=== PATIENT | female | born 1950 | race Caucasian/White ===

== ENCOUNTER 2016-05-30 13:38 | Outpatient (CLI) | payer BC | END 2016-05-30 13:39 | disposition home or self-care (01) | DX: Z12.31 Encounter for screening mammogram for malignant neoplasm of breast (principal) ==

== ENCOUNTER 2016-07-07 22:53 | Outpatient (CLI) | payer BC | END 2016-07-07 22:54 | disposition home or self-care (01) | DX: G47.61 Periodic limb movement disorder (principal) ==

== ENCOUNTER 2016-08-27 07:52 | Outpatient (CLI) | payer BC | END 2016-08-27 07:53 | disposition home or self-care (01) | DX: E78.5 Hyperlipidemia, unspecified (principal) ==

== ENCOUNTER 2016-09-15 09:28 | Outpatient (CLI) | payer BC | END 2016-09-15 09:29 | disposition home or self-care (01) | DX: G47.61 Periodic limb movement disorder (principal) ==

== ENCOUNTER 2016-11-09 10:51 | Day surgery (SDC) | payer BC ==
[2016-11-09] MEDS ORDERED: LACTATED RINGERS 1,000 ML IV ONE (11:16)
[2016-11-09 12:44] VITALS: BP 128/76
--- NOTE | 2016-11-09 12:45 | PROCEDURE REPORT ---
DATE OF PROCEDURE: 11/09/2016 00:00:00 PROCEDURE PERFORMED: Colonoscopy with biopsy. ENDOSCOPIST: Verna Reyes MD PRIMARY CARE: Katharine Mas PA-C INDICATION: History of diarrhea and rectal bleeding with abnormal CT showing thickening near the sple rosario flexure, now symptoms resolved. Need to rule out ischemic colitis, rule out neoplasia. PREMEDICATIONS: None at patient request. After informed consent was obtained, the patient was placed in left lateral decubitus position. The v ideo colonoscope was introduced in the rectum and slowly advanced to the cecum. Preparation was quite good. On slow withdrawal, mucosa was carefully examined. The scope was removed. The patient tolerate d the procedure well. BLOOD LOSS: None. COMPLICATIONS: None. FINDINGS 1. A 5 mm polyp in the proximal transverse colon, jumbo biopsied and removed completely. 2. Otherwise negative colonoscopy to cecum with complete resolution of any process going on in the sp lenic flexure. The patient probably had ischemic colitis, which now resolved. No further workup is necessary, though if she has recurrent symptoms she should call. We will be in touch about the colon polyp, which most likely is adenomatous, and if it is she will ne ed followup colonoscopy in 5 years rather than 10. JOB #: [id number] EXT JOB #:[id number]
== END 2016-11-09 10:52 | disposition home or self-care (01) ==
LOC: SDS 10:51
PROVIDERS: ATTEND Internal Medicine Gastroenterology
PROC: 0DBL8ZX Excision of Transverse Colon, Via Natural or Artificial Opening Endoscopic, Diagnostic (ICD-10-PCS; principal; 2016-11-09 12:00)
DX: R19.7 Diarrhea, unspecified (principal); K62.5 Hemorrhage of anus and rectum; D12.3 Benign neoplasm of transverse colon; E11.9 Type 2 diabetes mellitus without complications; E03.9 Hypothyroidism, unspecified; Z79.84 Long term (current) use of oral hypoglycemic drugs; Z79.82 Long term (current) use of aspirin; Z82.49 Family history of ischemic heart disease and other diseases of the circulatory system; Z83.3 Family history of diabetes mellitus; Z87.891 Personal history of nicotine dependence
CPT/HCPCS: 45380; J7120; 88305

== ENCOUNTER 2016-11-19 08:33 | Outpatient (CLI) | payer MEDICARE, BC ==
--- NOTE | 2016-11-20 16:15 | Ultrasound Report ---
EXAM: ARTERIAL VISCERAL COMPLETE DOPPLER ULTRASOUND EXAM DATE: 11/19/2016 09:57 AM. CLINICAL HISTORY: Abnormal CT, diarrhea, rectal bleeding. COMPARISON: CT abdomen and pelvis 04/15/2016. TECHNIQUE: Real-time sonographic vascular imaging was performed by the health coordinator through the arteri al system with a linear transducer utilizing color-flow, Doppler flow, and spectral analysis. Multipl e patient care representative static images were saved for review. FINDINGS: Aorta: 108 cm/sec. Celiac [place]: Origin: 187 cm/sec. Proximal: 215 cm/sec. Hepatic Artery: 165 cm/sec. Splenic Artery: 161 cm/sec. Superior Mesenteric Artery: Origin: 215 cm/sec. Proximal: 234 cm/sec Mid: 159 cm/sec. Inferior Mesenteric Artery: Not seen. Limited penetration due to large body habitus which limits visualization. IMPRESSION: Elevated peak systolic velocities seen at the proximal celiac artery, hepatic artery, and splenic artery. These velocities can be seen with 70% or greater stenosis. Limited exam as above. [facility] Referring Provider Line: [phone] SITE ID: [id number]
== END 2016-11-19 08:34 | disposition home or self-care (01) ==
LOC: DI 08:33
PROVIDERS: ATTEND Physician Assistant
DX: I77.4 Celiac artery compression syndrome (principal); I70.8 Atherosclerosis of other arteries
CPT/HCPCS: 93975

== ENCOUNTER 2017-04-17 08:17 | Outpatient (CLI) | payer MEDICARE, BC ==
[2017-04-17 08:55] LABS: BASOPHILS % (AUTO) 0.3 %; EOSINOPHILS # (AUTO) 0.1 10^3/uL (0.0-0.7); EOSINOPHILS % (AUTO) 1.1 %; HGB - HEMOGLOBIN 13.6 g/dL (12.0-16.0); LYMPHOCYTES # (AUTO) 2.4 10^3/uL (1.5-3.5); LYMPHOCYTES % (AUTO) 34.7 %; MEAN CORPUSCULAR HEMOGLOBIN 32.7 pg (27.0-31.0); MEAN CORPUSCULAR HGB CONC 34.9 g/dL (32.0-36.0); MEAN CORPUSCULAR VOLUME 93.6 fL (81.0-99.0); MEAN PLATELET VOLUME 7.7 fL (7.9-10.8); MONOCYTES # (AUTO) 0.5 10^3/uL (0.0-1.0); MONOCYTES % (AUTO) 7.3 %; NEUTROPHILS % (AUTO) 56.6 %; RED BLOOD COUNT 4.16 10^6/uL (4.20-5.40); RED CELL DISTRIBUTION WIDTH 13.3 % (12.0-15.0)
[2017-04-17 09:03] LABS: BILIRUBIN,URINE NEGATIVE (NEGATIVE); PH,URINE 5.5 PH (5.0-7.5)
[2017-04-17 09:31] LABS: HEMOGLOBIN A1C 0.63 g/dL
[2017-04-17 09:35] LABS: ALBUMIN/GLOBULIN RATIO 1.3 (1.0-2.2); BUN - BLOOD UREA NITROGEN 22 mg/dL (6-20); CALCIUM 9.5 mg/dL (8.5-10.3); CARBON DIOXIDE - CO2 23 mmol/L (21-32); CHLORIDE 106 mmol/L (101-111); CHOL/HDL RATIO 4.5 (<4.4); CHOLESTEROL 188 mg/dL; CREATININE 0.8 mg/dL (0.4-1.0); GFR - MDRD 72 (>89); GLUCOSE 146 mg/dL (70-100); HDL CHOLESTEROL 42 mg/dL; LDL/HDL RATIO 2.3 (<4.4); POTASSIUM 3.8 mmol/L (3.5-5.0); SODIUM 138 mmol/L (135-145); TOTAL PROTEIN 7.2 g/dL (6.7-8.2); TRIGLYCERIDES 254 mg/dL; VLDL CHOLESTEROL 51 mg/dL
[2017-04-17 09:38] LABS: UA w/ MICROSCOPIC CHARGE YES
[2017-04-17 09:39] LABS: UR CULTURE IF IND INDICATED; WBC,URINE >25 /HPF (0-5)
== END 2017-04-17 08:18 | disposition home or self-care (01) ==
LOC: LAB 08:17
PROVIDERS: ATTEND Physician Assistant Medical
DX: Z01.818 Encounter for other preprocedural examination (principal); E11.9 Type 2 diabetes mellitus without complications; R73.09 Other abnormal glucose; E03.9 Hypothyroidism, unspecified
CPT/HCPCS: 36415; 80053; 80061; 81001; 81003; 83036; 84443; 85025; 87077; 87086; 93005

== ENCOUNTER 2017-09-08 10:11 | Outpatient (CLI) | payer MEDICARE, BC ==
[2017-09-08 10:37] LABS: CALCIUM 9.7 mg/dL (8.5-10.3); CREATININE 0.6 mg/dL (0.4-1.0)
[2017-09-08 11:01] LABS: HB2 TOTAL 14.4 g/dL; HEMOGLOBIN A1C 0.67 g/dL; HEMOGLOBIN A1C % 6.4 % (4.6-6.2)
== END 2017-09-08 10:12 | disposition home or self-care (01) ==
LOC: LAB 10:11
PROVIDERS: ATTEND Physician Assistant Medical
DX: E11.9 Type 2 diabetes mellitus without complications (principal)
CPT/HCPCS: 36415; 80048; 83036

== ENCOUNTER 2017-10-07 08:23 | Outpatient (CLI) | payer MEDICARE, BC | END 2017-10-07 08:24 | disposition home or self-care (01) | LOC: DI 08:23 | PROVIDERS: ATTEND Physician Assistant Medical | DX: Z53.9 Procedure and treatment not carried out, unspecified reason (principal) ==

== ENCOUNTER 2017-10-09 08:31 | Outpatient (CLI) | payer MEDICARE, BC | END 2017-10-09 08:32 | disposition home or self-care (01) | LOC: DI 08:31 | PROVIDERS: ATTEND Physician Assistant Medical | DX: R00.2 Palpitations (principal); I51.7 Cardiomegaly; E11.9 Type 2 diabetes mellitus without complications | CPT/HCPCS: 93306 ==

== ENCOUNTER 2018-02-26 08:15 | Outpatient (CLI) | payer MEDICARE, BC ==
[2018-02-26 09:02] LABS: ALBUMIN 3.9 g/dL (3.2-5.5); ALBUMIN/GLOBULIN RATIO 1.2 (1.0-2.2); ALKALINE PHOSPHATASE 64 IU/L (42-121); ALT ALANINE AMINOTRANSFERASE 73 IU/L (10-60); AST ASPARTATE AMINOTRANSFERASE 62 IU/L (10-42); BILIRUBIN,TOTAL 0.9 mg/dL (0.2-1.0); BUN - BLOOD UREA NITROGEN 17 mg/dL (6-20); CALCIUM 9.4 mg/dL (8.5-10.3); CARBON DIOXIDE - CO2 24 mmol/L (21-32); CHLORIDE 104 mmol/L (101-111); CHOL/HDL RATIO 3.7 (<4.4); CHOLESTEROL 166 mg/dL; CREATININE 0.7 mg/dL (0.4-1.0); GFR - MDRD 84 (>89); GLUCOSE 161 mg/dL (70-100); HDL CHOLESTEROL 45 mg/dL; LDL CHOLESTEROL,CALCULATED 83 mg/dL; LDL/HDL RATIO 1.8 (<4.4); SODIUM 136 mmol/L (135-145); TOTAL PROTEIN 7.1 g/dL (6.7-8.2); VLDL CHOLESTEROL 38 mg/dL
[2018-02-26 09:13] LABS: HB2 TOTAL 14.4 g/dL; HEMOGLOBIN A1C 0.72 g/dL; HEMOGLOBIN A1C % 6.7 % (4.6-6.2)
== END 2018-02-26 08:16 | disposition home or self-care (01) ==
LOC: LAB 08:15
PROVIDERS: ATTEND Physician Assistant Medical
DX: E11.9 Type 2 diabetes mellitus without complications (principal)
CPT/HCPCS: 36415; 80053; 80061; 83036; 83721

== ENCOUNTER 2018-06-28 08:17 | Outpatient (CLI) | payer MEDICARE, BC ==
--- NOTE | 2018-06-28 15:27 | Mammography Report ---
Reason: SCREENING MAMMO Procedure Date: 06/28/2018 Accession Number: [id number] / [id number] Procedure: [facility] - Screening Mammo w/Dion CPT Code: FULL RESULT: EXAM: Screening Mammo w/Dion DATE: 06/28/2018 8:45 AM CLINICAL HISTORY: Routine screening. No personal history of breast cancer. Family history of breast cancer in an aunt age 30. TECHNIQUE: Bilateral CC and MLO views were obtained. COMPARISON: 05/30/2016 through 09/11/2012 FINDINGS: The breasts demonstrate diffuse fatty replacement bilaterally. Bilateral breasts: There are no suspicious masses, calcifications or areas of distortion. IMPRESSION: Negative examination RECOMMENDATION: Routine annual screening unless otherwise clinically indicated. BI-RADS CATEGORY 1: Negative STANDARD QUALIFYING STATEMENTS: 1. This examination was not reviewed with the aid of Computer-Aided Detection (CAD). 2. A negative or benign imaging report should not preclude biopsy if clinically suspicious findings are present. 3. Dense breasts may obscure an underlying neoplasm. 4. This examination was reviewed with the aid of 3D breast imaging (tomosynthesis).
== END 2018-06-28 08:18 | disposition home or self-care (01) ==
LOC: DI 08:17
DX: Z12.31 Encounter for screening mammogram for malignant neoplasm of breast (principal); Z80.3 Family history of malignant neoplasm of breast
CPT/HCPCS: 77063; 77067

== ENCOUNTER 2018-07-17 08:10 | Outpatient (CLI) | payer MEDICARE, BC ==
[2018-07-17 09:02] LABS: BASOPHILS % (AUTO) 0.2 %; EOSINOPHILS # (AUTO) 0.1 10^3/uL (0.0-0.7); HGB - HEMOGLOBIN 13.3 g/dL (12.0-16.0); LYMPHOCYTES # (AUTO) 2.8 10^3/uL (1.5-3.5); MEAN CORPUSCULAR HEMOGLOBIN 32.8 pg (27.0-31.0); MEAN CORPUSCULAR HGB CONC 35.4 g/dL (32.0-36.0); MEAN CORPUSCULAR VOLUME 92.6 fL (81.0-99.0); MEAN PLATELET VOLUME 7.7 fL (7.9-10.8); MONOCYTES # (AUTO) 0.6 10^3/uL (0.0-1.0); NEUTROPHILS # (AUTO) 3.6 10^3/uL (1.5-6.6); NEUTROPHILS % (AUTO) 50.8 %; PLT - PLATELET COUNT 219 10^3/uL (130-450); RED BLOOD COUNT 4.07 10^6/uL (4.20-5.40); RED CELL DISTRIBUTION WIDTH 13.1 % (12.0-15.0); WHITE BLOOD COUNT 7.1 x10^3/uL (4.8-10.8)
[2018-07-17 09:14] LABS: BILIRUBIN,URINE NEGATIVE (NEGATIVE); GLUCOSE, URINE (UA) NEGATIVE (NEGATIVE); KETONES,URINE (UA) NEGATIVE (NEGATIVE); LEUKOCYTE ESTERASE, URINE NEGATIVE (NEGATIVE); NITRITE,URINE NEGATIVE (NEGATIVE); OCCULT BLOOD,URINE NEGATIVE (NEGATIVE); PH,URINE 5.5 PH (5.0-7.5); PROTEIN,URINE NEGATIVE (NEGATIVE); UROBILINOGEN,URINE 0.2 (NORMAL) E.U./dL (NORMAL)
[2018-07-17 09:14] LABS: CALCIUM 9.6 mg/dL (8.5-10.3); CREATININE 0.8 mg/dL (0.4-1.0)
[2018-07-17 09:20] LABS: CLARITY,URINE CLEAR (CLEAR)
[2018-07-17 09:48] LABS: HB2 TOTAL 13.6 g/dL; HEMOGLOBIN A1C 0.67 g/dL; HEMOGLOBIN A1C % 6.7 % (4.6-6.2)
== END 2018-07-17 08:11 | disposition home or self-care (01) ==
LOC: LAB 08:10
PROVIDERS: ATTEND Orthopaedic Surgery
DX: Z01.812 Encounter for preprocedural laboratory examination (principal); N39.9 Disorder of urinary system, unspecified; Z13.1 Encounter for screening for diabetes mellitus
CPT/HCPCS: 36415; 80048; 81001; 81003; 83036; 85025; 87086

== ENCOUNTER 2018-11-21 09:39 | Outpatient (CLI) | payer MEDICARE, BC ==
--- NOTE | 2018-11-21 11:21 | Ultrasound Report ---
Reason: PALPABLE MASS Procedure Date: 11/21/2018 Accession Number: [id number] / [id number] Procedure: US - Breast Unilateral Limited CPT Code: FULL RESULT: EXAM: Diagnostic Dig LT, Breast Unilateral Limited DATE: 11/21/2018 10:14 AM CLINICAL HISTORY: Palpable LEFT breast lump. LEFT MAMMOGRAM TECHNIQUE: (L) - Left CC and MLO views were obtained. COMPARISON: 06/28/2018 and 05/30/2016 PARENCHYMAL PATTERN: (F) - The breasts demonstrate diffuse fatty replacement bilaterally. FINDINGS: In the area of palpable concern left upper inner quadrant there are no suspicious masses, calcifications, or areas of distortion. LEFT ULTRASOUND TECHNIQUE: Targeted ultrasound was performed of the left breast in the area of clinical concern 10:30 position 8 cm from the nipple. Color Doppler was employed as appropriate. FINDINGS: Corresponding to the palpable abnormality is a fat lobule. No cystic or solid mass or abnormal fluid collection is seen. IMPRESSION: Negative examination. BI-RADS category 1. RECOMMENDATION: (ANNUAL) - Recommend routine annual screening mammography. BI-RADS CATEGORY: (1) - Negative. STANDARD QUALIFYING STATEMENTS: 1. This examination was not reviewed with the aid of Computer-Aided Detection (CAD). 2. A negative or benign imaging report should not preclude biopsy if clinically suspicious findings are present. 3. Dense breasts may obscure an underlying neoplasm. 4. This examination was reviewed with the aid of 3D breast imaging (tomosynthesis).
== END 2018-11-21 09:40 | disposition home or self-care (01) ==
LOC: DI 09:39
PROVIDERS: ATTEND Physician Assistant Medical
DX: N63.22 Unspecified lump in the left breast, upper inner quadrant (principal)
CPT/HCPCS: 76642; 77065; G0279

== ENCOUNTER 2019-01-08 08:02 | Outpatient (CLI) | payer MEDICARE, BC ==
[2019-01-08 08:33] LABS: CALCIUM 9.8 mg/dL (8.5-10.3); CREATININE 0.8 mg/dL (0.4-1.0)
[2019-01-08 08:41] LABS: CREATININE,URINE 108.5 mg/dL; MICROALBUM/CREATININE RATIO,UR 7.4 ug/mg (<30.0); MICROALBUMIN,URINE 0.8 mg/dL (0-300.0)
[2019-01-08 08:59] LABS: HB2 TOTAL 14.5 g/dL; HEMOGLOBIN A1C 0.77 g/dL
== END 2019-01-08 08:03 | disposition home or self-care (01) ==
LOC: LAB 08:02
PROVIDERS: ATTEND Physician Assistant Medical
DX: E11.9 Type 2 diabetes mellitus without complications (principal); I10 Essential (primary) hypertension
CPT/HCPCS: 36415; 80048; 82043; 82570; 83036; 84443

== ENCOUNTER 2019-07-14 09:17 | Outpatient (CLI) | payer MEDICARE, BC ==
[2019-07-14 09:42] LABS: HGB - HEMOGLOBIN 13.4 g/dL (12.0-16.0); MEAN CORPUSCULAR HEMOGLOBIN 31.7 pg (27.0-31.0); MEAN CORPUSCULAR HGB CONC 33.6 g/dL (32.0-36.0); MEAN CORPUSCULAR VOLUME 94.3 fL (81.0-99.0); MEAN PLATELET VOLUME 9.3 fL (7.9-10.8); RED BLOOD COUNT 4.23 10^6/uL (4.20-5.40); RED CELL DISTRIBUTION WIDTH 12.5 % (12.0-15.0); WHITE BLOOD COUNT 7.4 x10^3/uL (4.8-10.8)
[2019-07-14 09:53] LABS: CRP - C-REACTIVE PROTEIN < 1.0 mg/dL (0-1.0)
[2019-07-14 10:02] LABS: URIC ACID 10.2 mg/dL (2.6-7.2)
== END 2019-07-14 09:18 | disposition home or self-care (01) ==
LOC: LAB 09:17
PROVIDERS: ATTEND Physician Assistant Medical
DX: M10.9 Gout, unspecified (principal)
CPT/HCPCS: 36415; 84550; 85027; 86140

== ENCOUNTER 2020-04-13 09:02 | Outpatient (CLI) | payer MEDICARE, BC ==
[2020-04-13 12:30] LABS: CALCIUM 9.7 mg/dL (8.5-10.3); CREATININE 0.8 mg/dL (0.4-1.0)
[2020-04-13 13:37] LABS: HEMOGLOBIN A1c% 5.9 % (4.27-6.07)
== END 2020-04-13 23:59 | disposition home or self-care (01) ==
LOC: LAB.WCP 09:02
PROVIDERS: ATTEND Physician Assistant Medical
DX: E11.9 Type 2 diabetes mellitus without complications (principal)
CPT/HCPCS: 36415; 80048; 83036

== ENCOUNTER 2020-10-09 07:39 | Outpatient (CLI) | payer MEDICARE, BC ==
[2020-10-09 07:53] LABS: BASOPHILS % (AUTO) 0.5 %; EOSINOPHILS # (AUTO) 0.1 10^3/uL (0.0-0.7); EOSINOPHILS % (AUTO) 1.3 %; HCT - HEMATOCRIT 39.7 % (37.0-47.0); HGB - HEMOGLOBIN 13.7 g/dL (12.0-16.0); LYMPHOCYTES # (AUTO) 2.4 10^3/uL (1.5-3.5); LYMPHOCYTES % (AUTO) 38.3 %; MEAN CORPUSCULAR HEMOGLOBIN 32.1 pg (27.0-31.0); MEAN CORPUSCULAR HGB CONC 34.5 g/dL (32.0-36.0); MEAN PLATELET VOLUME 9.3 fL (7.9-10.8); MONOCYTES # (AUTO) 0.5 10^3/uL (0.0-1.0); MONOCYTES % (AUTO) 8.6 %; NEUTROPHILS # (AUTO) 3.2 10^3/uL (1.5-6.6); PLT - PLATELET COUNT 211 10^3/uL (130-450); RED BLOOD COUNT 4.27 10^6/uL (4.20-5.40); WHITE BLOOD COUNT 6.3 x10^3/uL (4.8-10.8)
[2020-10-09 08:04] LABS: ALBUMIN 4.3 g/dL (3.2-5.5); ALBUMIN/GLOBULIN RATIO 1.4 (1.0-2.2); BILIRUBIN,TOTAL 0.9 mg/dL (0.2-1.0); CALCIUM 9.9 mg/dL (8.5-10.3); CREATININE 0.7 mg/dL (0.4-1.0); POTASSIUM 4.1 mmol/L (3.5-5.0); TOTAL PROTEIN 7.4 g/dL (6.7-8.2); URIC ACID 6.7 mg/dL (2.6-7.2)
== END 2020-10-09 07:40 | disposition home or self-care (01) ==
LOC: LAB 07:39
PROVIDERS: ATTEND Internal Medicine
DX: M1A.09X0 Idiopathic chronic gout, multiple sites, without tophus (tophi) (principal)
CPT/HCPCS: 36415; 80053; 84550; 85025

== ENCOUNTER 2020-10-29 08:38 | Outpatient (CLI) | payer MEDICARE, BC ==
[2020-10-29 09:03] LABS: BASOPHILS % (AUTO) 0.2 %; EOSINOPHILS # (AUTO) 0.1 10^3/uL (0.0-0.7); EOSINOPHILS % (AUTO) 0.8 %; HCT - HEMATOCRIT 40.1 % (37.0-47.0); HGB - HEMOGLOBIN 13.7 g/dL (12.0-16.0); LYMPHOCYTES # (AUTO) 2.3 10^3/uL (1.5-3.5); LYMPHOCYTES % (AUTO) 34.9 %; MEAN CORPUSCULAR HEMOGLOBIN 31.8 pg (27.0-31.0); MEAN CORPUSCULAR HGB CONC 34.2 g/dL (32.0-36.0); MEAN PLATELET VOLUME 9.3 fL (7.9-10.8); MONOCYTES # (AUTO) 0.6 10^3/uL (0.0-1.0); MONOCYTES % (AUTO) 8.6 %; NEUTROPHILS # (AUTO) 3.6 10^3/uL (1.5-6.6); NEUTROPHILS % (AUTO) 55.3 %; PLT - PLATELET COUNT 212 10^3/uL (130-450); RED BLOOD COUNT 4.31 10^6/uL (4.20-5.40); RED CELL DISTRIBUTION WIDTH 12.8 % (12.0-15.0); WHITE BLOOD COUNT 6.5 x10^3/uL (4.8-10.8)
[2020-10-29 09:16] LABS: ALBUMIN 4.3 g/dL (3.2-5.5); ALBUMIN/GLOBULIN RATIO 1.5 (1.0-2.2); BILIRUBIN,TOTAL 0.7 mg/dL (0.2-1.0); CALCIUM 9.6 mg/dL (8.5-10.3); CREATININE 0.7 mg/dL (0.4-1.0); POTASSIUM 4.2 mmol/L (3.5-5.0); TOTAL PROTEIN 7.2 g/dL (6.7-8.2); URIC ACID 7.1 mg/dL (2.6-7.2)
== END 2020-10-29 08:39 | disposition home or self-care (01) ==
LOC: LAB 08:38
PROVIDERS: ATTEND Internal Medicine
DX: M1A.09X0 Idiopathic chronic gout, multiple sites, without tophus (tophi) (principal)
CPT/HCPCS: 36415; 80053; 84550; 85025

== ENCOUNTER 2020-12-15 07:28 | Outpatient (CLI) | payer MEDICARE, BC ==
[2020-12-15 07:57] LABS: BASOPHILS % (AUTO) 0.2 %; EOSINOPHILS # (AUTO) 0.1 10^3/uL (0.0-0.7); HCT - HEMATOCRIT 39.2 % (37.0-47.0); HGB - HEMOGLOBIN 13.7 g/dL (12.0-16.0); LYMPHOCYTES # (AUTO) 2.2 10^3/uL (1.5-3.5); LYMPHOCYTES % (AUTO) 36.2 %; MEAN CORPUSCULAR HEMOGLOBIN 32.2 pg (27.0-31.0); MEAN CORPUSCULAR HGB CONC 34.9 g/dL (32.0-36.0); MEAN CORPUSCULAR VOLUME 92.2 fL (81.0-99.0); MEAN PLATELET VOLUME 9.6 fL (7.9-10.8); MONOCYTES # (AUTO) 0.6 10^3/uL (0.0-1.0); MONOCYTES % (AUTO) 9.1 %; NEUTROPHILS # (AUTO) 3.2 10^3/uL (1.5-6.6); NEUTROPHILS % (AUTO) 53.2 %; PLT - PLATELET COUNT 220 10^3/uL (130-450); RED BLOOD COUNT 4.25 10^6/uL (4.20-5.40); RED CELL DISTRIBUTION WIDTH 13.2 % (12.0-15.0); WHITE BLOOD COUNT 6.1 x10^3/uL (4.8-10.8)
[2020-12-15 07:59] LABS: CREATININE,URINE 128.6 mg/dL; MICROALBUM/CREATININE RATIO,UR 4.7 ug/mg (<30.0); MICROALBUMIN,URINE 0.6 mg/dL (0-300.0)
[2020-12-15 08:08] LABS: ALBUMIN 4.3 g/dL (3.2-5.5); ALBUMIN/GLOBULIN RATIO 1.5 (1.0-2.2); ALKALINE PHOSPHATASE 105 IU/L (42-121); ALT ALANINE AMINOTRANSFERASE 83 IU/L (10-60); AST ASPARTATE AMINOTRANSFERASE 62 IU/L (10-42); BILIRUBIN,TOTAL 0.9 mg/dL (0.2-1.0); BUN - BLOOD UREA NITROGEN 18 mg/dL (6-20); CALCIUM 9.7 mg/dL (8.5-10.3); CARBON DIOXIDE - CO2 24 mmol/L (21-32); CHLORIDE 109 mmol/L (101-111); CHOLESTEROL 170 mg/dL; CREATININE 0.7 mg/dL (0.4-1.0); GFR - MDRD 83 (>89); GLUCOSE 145 mg/dL (70-100); HDL CHOLESTEROL 42 mg/dL; LDL CHOLESTEROL,CALCULATED 73 mg/dL; LDL/HDL RATIO 1.7 (<4.4); POTASSIUM 4.1 mmol/L (3.5-5.0); SODIUM 141 mmol/L (135-145); TOTAL PROTEIN 7.1 g/dL (6.7-8.2); TRIGLYCERIDES 276 mg/dL; URIC ACID 7.1 mg/dL (2.6-7.2); VLDL CHOLESTEROL 55 mg/dL
[2020-12-15 08:20] LABS: THYROID STIMULATING HORMONE 0.5 uIU/mL (0.34-5.60)
[2020-12-15 09:46] LABS: ESTIMATED AVERAGE GLUCOSE 128 mg/dL (70-100); HEMOGLOBIN A1c% 6.1 % (4.27-6.07)
== END 2020-12-15 07:29 | disposition home or self-care (01) ==
LOC: LAB 07:28
PROVIDERS: ATTEND Internal Medicine
DX: E78.5 Hyperlipidemia, unspecified (principal); M1A.09X0 Idiopathic chronic gout, multiple sites, without tophus (tophi); E11.9 Type 2 diabetes mellitus without complications; E03.9 Hypothyroidism, unspecified; I10 Essential (primary) hypertension
CPT/HCPCS: 36415; 80053; 80061; 82043; 82570; 83036; 83721; 84443; 84550; 85025

== ENCOUNTER 2021-01-15 08:13 | Outpatient (CLI) | payer MEDICARE, BC ==
[2021-01-15 08:26] LABS: BASOPHILS % (AUTO) 0.2 %; EOSINOPHILS # (AUTO) 0.1 10^3/uL (0.0-0.7); EOSINOPHILS % (AUTO) 0.9 %; HCT - HEMATOCRIT 39.8 % (37.0-47.0); HGB - HEMOGLOBIN 13.8 g/dL (12.0-16.0); LYMPHOCYTES # (AUTO) 2.4 10^3/uL (1.5-3.5); LYMPHOCYTES % (AUTO) 36.7 %; MEAN CORPUSCULAR HEMOGLOBIN 32.7 pg (27.0-31.0); MEAN CORPUSCULAR HGB CONC 34.7 g/dL (32.0-36.0); MEAN CORPUSCULAR VOLUME 94.3 fL (81.0-99.0); MEAN PLATELET VOLUME 9.3 fL (7.9-10.8); MONOCYTES # (AUTO) 0.5 10^3/uL (0.0-1.0); MONOCYTES % (AUTO) 8.2 %; NEUTROPHILS # (AUTO) 3.5 10^3/uL (1.5-6.6); NEUTROPHILS % (AUTO) 53.7 %; PLT - PLATELET COUNT 214 10^3/uL (130-450); RED BLOOD COUNT 4.22 10^6/uL (4.20-5.40); RED CELL DISTRIBUTION WIDTH 13.2 % (12.0-15.0); WHITE BLOOD COUNT 6.6 x10^3/uL (4.8-10.8)
[2021-01-15 08:39] LABS: ALBUMIN 4.2 g/dL (3.2-5.5); ALBUMIN/GLOBULIN RATIO 1.4 (1.0-2.2); BILIRUBIN,TOTAL 1.2 mg/dL (0.2-1.0); CALCIUM 9.6 mg/dL (8.5-10.3); CREATININE 0.7 mg/dL (0.4-1.0); POTASSIUM 4.1 mmol/L (3.5-5.0); TOTAL PROTEIN 7.3 g/dL (6.7-8.2); URIC ACID 6.5 mg/dL (2.6-7.2)
== END 2021-01-15 08:14 | disposition home or self-care (01) ==
LOC: LAB 08:13
PROVIDERS: ATTEND Internal Medicine
DX: M1A.09X0 Idiopathic chronic gout, multiple sites, without tophus (tophi) (principal)
CPT/HCPCS: 36415; 80053; 84550; 85025

== ENCOUNTER 2021-03-09 07:17 | Outpatient (CLI) | payer MEDICARE, BC ==
[2021-03-09 07:39] LABS: BASOPHILS % (AUTO) 0.2 %; EOSINOPHILS # (AUTO) 0.1 10^3/uL (0.0-0.7); EOSINOPHILS % (AUTO) 1.1 %; HGB - HEMOGLOBIN 13.7 g/dL (12.0-16.0); LYMPHOCYTES # (AUTO) 1.9 10^3/uL (1.5-3.5); LYMPHOCYTES % (AUTO) 35.3 %; MEAN CORPUSCULAR HEMOGLOBIN 33.7 pg (27.0-31.0); MEAN CORPUSCULAR HGB CONC 35.1 g/dL (32.0-36.0); MEAN CORPUSCULAR VOLUME 96.1 fL (81.0-99.0); MEAN PLATELET VOLUME 9.4 fL (7.9-10.8); MONOCYTES # (AUTO) 0.7 10^3/uL (0.0-1.0); NEUTROPHILS # (AUTO) 2.7 10^3/uL (1.5-6.6); PLT - PLATELET COUNT 197 10^3/uL (130-450); RED BLOOD COUNT 4.06 10^6/uL (4.20-5.40); RED CELL DISTRIBUTION WIDTH 13.1 % (12.0-15.0); WHITE BLOOD COUNT 5.3 x10^3/uL (4.8-10.8)
[2021-03-09 07:52] LABS: ALBUMIN 4.2 g/dL (3.2-5.5); ALBUMIN/GLOBULIN RATIO 1.5 (1.0-2.2); CALCIUM 9.7 mg/dL (8.5-10.3); CREATININE 0.7 mg/dL (0.4-1.0); URIC ACID 5.9 mg/dL (2.6-7.2)
== END 2021-03-09 07:18 | disposition home or self-care (01) ==
LOC: LAB 07:17
PROVIDERS: ATTEND Internal Medicine
DX: M1A.09X0 Idiopathic chronic gout, multiple sites, without tophus (tophi) (principal)
CPT/HCPCS: 36415; 80053; 84550; 85025

== ENCOUNTER 2021-03-25 12:30 | Outpatient (CLI) | payer MEDICARE, BC ==
--- NOTE | 2021-03-31 11:40 | Mammography Report ---
BILATERAL DIGITAL SCREENING MAMMOGRAM 3D/2D: 03/25/2021 CLINICAL: Routine screening. Routine screening. Comparison is made to exams dated: 11/21/2018 mammogram, 11/21/2018 ultrasound, 06/28/2018 mammogram, 2016 mammogram, 03/09/2015 mammogram, and 10/07/2013 mammogram - [facility]. The ti ssue of both breasts is predominantly fatty. No significant masses, calcifications, or other findings are seen in either breast. There has been no significant interval change. IMPRESSION: NEGATIVE There is no mammographic evidence of malignancy. A 1 year screening mammogram is recommended. This exam was interpreted at Station ID: [id number]. NOTE: For mammograms, a report in lay terms will be sent to the patient. Approximately 15% of breast malignancies will not be visualized mammographically. In the management of a palpable breast mass, a negative mammogram must not discourage biopsy of a clinically suspicious lesion. Electronically Signed By: Luis F see/penmary jo:03/31/2021 10:40:14 ACR BI-RADS Category 1: Negative 3341F PARENCHYMAL PATTERN: (F) - The breast(s) demonstrate(s) diffuse fatty replacement. BI-RADS CATEGORY: (1) - 1 RECOMMENDATION: (ANNUAL) - Recommend routine annual screening mammography. [id number] 1 year screening LATERALITY: (B)
== END 2021-03-25 12:31 | disposition home or self-care (01) ==
LOC: DI 12:30
DX: Z12.31 Encounter for screening mammogram for malignant neoplasm of breast (principal)

== ENCOUNTER 2021-07-05 08:35 | Outpatient (CLI) | payer MEDICARE, BC ==
[2021-07-05 09:23] LABS: ALBUMIN 4.3 g/dL (3.2-5.5); ALBUMIN/GLOBULIN RATIO 1.5 (1.0-2.2); ALKALINE PHOSPHATASE 75 IU/L (42-121); ALT ALANINE AMINOTRANSFERASE 58 IU/L (10-60); AST ASPARTATE AMINOTRANSFERASE 55 IU/L (10-42); BILIRUBIN,TOTAL 0.9 mg/dL (0.2-1.0); BUN - BLOOD UREA NITROGEN 15 mg/dL (6-20); CALCIUM 9.8 mg/dL (8.5-10.3); CARBON DIOXIDE - CO2 26 mmol/L (21-32); CHLORIDE 104 mmol/L (101-111); CHOL/HDL RATIO 4.3 (<4.4); CHOLESTEROL 179 mg/dL; CREATININE 0.8 mg/dL (0.4-1.0); GFR - MDRD 71 (>89); GLUCOSE 144 mg/dL (70-100); HDL CHOLESTEROL 42 mg/dL; LDL CHOLESTEROL,CALCULATED 84 mg/dL; POTASSIUM 4.2 mmol/L (3.5-5.0); SODIUM 140 mmol/L (135-145); TOTAL PROTEIN 7.2 g/dL (6.7-8.2); TRIGLYCERIDES 265 mg/dL; VLDL CHOLESTEROL 53 mg/dL
[2021-07-05 09:38] LABS: ESTIMATED AVERAGE GLUCOSE 134 mg/dL (70-100); HEMOGLOBIN A1c% 6.3 % (4.27-6.07)
== END 2021-07-05 08:36 | disposition home or self-care (01) ==
LOC: LAB 08:35
PROVIDERS: ATTEND Physician Assistant Medical
DX: E11.9 Type 2 diabetes mellitus without complications (principal)
CPT/HCPCS: 36415; 80053; 80061; 83036; 83721

== ENCOUNTER 2021-11-10 08:20 | Outpatient (CLI) | payer MEDICARE, BC ==
[2021-11-10 08:43] LABS: BASOPHILS % (AUTO) 0.3 %; EOSINOPHILS # (AUTO) 0.1 10^3/uL (0.0-0.7); EOSINOPHILS % (AUTO) 0.9 %; HGB - HEMOGLOBIN 13.6 g/dL (12.0-16.0); LYMPHOCYTES # (AUTO) 2.4 10^3/uL (1.5-3.5); LYMPHOCYTES % (AUTO) 34.5 %; MEAN CORPUSCULAR HEMOGLOBIN 32.3 pg (27.0-31.0); MEAN PLATELET VOLUME 9.3 fL (7.9-10.8); MONOCYTES # (AUTO) 0.7 10^3/uL (0.0-1.0); MONOCYTES % (AUTO) 10.2 %; NEUTROPHILS # (AUTO) 3.7 10^3/uL (1.5-6.6); NEUTROPHILS % (AUTO) 53.8 %; PLT - PLATELET COUNT 210 10^3/uL (130-450); RED BLOOD COUNT 4.21 10^6/uL (4.20-5.40); RED CELL DISTRIBUTION WIDTH 13.2 % (12.0-15.0); WHITE BLOOD COUNT 6.9 x10^3/uL (4.8-10.8)
[2021-11-10 09:11] LABS: CREATININE,URINE 120.8 mg/dL; MICROALBUM/CREATININE RATIO,UR 8.3 ug/mg (<30.0)
[2021-11-10 09:13] LABS: ALBUMIN 4.2 g/dL (3.2-5.5); ALBUMIN/GLOBULIN RATIO 1.4 (1.0-2.2); ALKALINE PHOSPHATASE 68 IU/L (42-121); ALT ALANINE AMINOTRANSFERASE 50 IU/L (10-60); AST ASPARTATE AMINOTRANSFERASE 40 IU/L (10-42); BILIRUBIN,TOTAL 0.7 mg/dL (0.2-1.0); BUN - BLOOD UREA NITROGEN 14 mg/dL (6-20); CALCIUM 9.7 mg/dL (8.5-10.3); CARBON DIOXIDE - CO2 25 mmol/L (21-32); CHLORIDE 102 mmol/L (101-111); CREATININE 0.7 mg/dL (0.4-1.0); GFR - MDRD 83 (>89); GLUCOSE 147 mg/dL (70-100); POTASSIUM 4.1 mmol/L (3.5-5.0); SODIUM 138 mmol/L (135-145); TOTAL PROTEIN 7.3 g/dL (6.7-8.2)
[2021-11-10 10:30] LABS: CRP - C-REACTIVE PROTEIN < 1.0 mg/dL (0-1.0)
[2021-11-10 11:17] LABS: ESTIMATED AVERAGE GLUCOSE 134 mg/dL (70-100); HEMOGLOBIN A1c% 6.3 % (4.27-6.07)
== END 2021-11-10 08:21 | disposition home or self-care (01) ==
LOC: LAB 08:20
PROVIDERS: ATTEND Nurse Practitioner
DX: I10 Essential (primary) hypertension (principal); E11.9 Type 2 diabetes mellitus without complications; N64.52 Nipple discharge
CPT/HCPCS: 36415; 80053; 82043; 82570; 83036; 85025; 85651; 86140

== ENCOUNTER 2022-04-25 07:38 | Outpatient (CLI) | payer MEDICARE, BC ==
[2022-04-25 09:01] LABS: ALBUMIN 4.1 g/dL (3.2-5.5); ALBUMIN/GLOBULIN RATIO 1.4 (1.0-2.2); ALKALINE PHOSPHATASE 61 IU/L (42-121); ALT ALANINE AMINOTRANSFERASE 67 IU/L (10-60); AST ASPARTATE AMINOTRANSFERASE 59 IU/L (10-42); BILIRUBIN,TOTAL 0.7 mg/dL (0.2-1.0); BUN - BLOOD UREA NITROGEN 14 mg/dL (6-20); CALCIUM 9.9 mg/dL (8.5-10.3); CARBON DIOXIDE - CO2 27 mmol/L (21-32); CHLORIDE 101 mmol/L (101-111); CHOL/HDL RATIO 3.9 (<4.4); CHOLESTEROL 153 mg/dL; CREATININE 0.7 mg/dL (0.4-1.0); GFR - MDRD 83 (>89); GLUCOSE 156 mg/dL (70-100); HDL CHOLESTEROL 39 mg/dL; LDL CHOLESTEROL,CALCULATED 78 mg/dL; POTASSIUM 4.2 mmol/L (3.5-5.0); SODIUM 139 mmol/L (135-145); TRIGLYCERIDES 182 mg/dL; VLDL CHOLESTEROL 36 mg/dL
[2022-04-25 11:03] LABS: ESTIMATED AVERAGE GLUCOSE 146 mg/dL (70-100); HEMOGLOBIN A1c% 6.7 % (4.27-6.07)
== END 2022-04-25 07:39 | disposition home or self-care (01) ==
LOC: LAB 07:38
PROVIDERS: ATTEND Physician Assistant Medical
DX: E11.9 Type 2 diabetes mellitus without complications (principal)
CPT/HCPCS: 36415; 80053; 80061; 83036; 83721

== ENCOUNTER 2022-08-16 07:14 | Outpatient (CLI) | payer MEDICARE, BC ==
[2022-08-16 07:36] LABS: CALCIUM 9.4 mg/dL (8.5-10.3); CREATININE 0.7 mg/dL (0.4-1.0); POTASSIUM 3.9 mmol/L (3.5-5.0)
[2022-08-16 13:26] LABS: ESTIMATED AVERAGE GLUCOSE 134 mg/dL (70-100); HEMOGLOBIN A1c% 6.3 % (4.27-6.07)
== END 2022-08-16 07:15 | disposition home or self-care (01) ==
LOC: LAB 07:14
PROVIDERS: ATTEND Physician Assistant Medical
DX: E11.9 Type 2 diabetes mellitus without complications (principal)
CPT/HCPCS: 36415; 80048; 83036

== ENCOUNTER 2022-11-11 07:13 | Outpatient (CLI) | payer MEDICARE, BC ==
[2022-11-11 07:57] LABS: ALBUMIN 3.9 g/dL (3.2-5.5); ALBUMIN/GLOBULIN RATIO 1.6 (1.0-2.2); ALKALINE PHOSPHATASE 53 IU/L (42-121); ALT ALANINE AMINOTRANSFERASE 30 IU/L (10-60); AST ASPARTATE AMINOTRANSFERASE 24 IU/L (10-42); BILIRUBIN,TOTAL 0.8 mg/dL (0.2-1.0); BUN - BLOOD UREA NITROGEN 13 mg/dL (6-20); CALCIUM 9.3 mg/dL (8.5-10.3); CARBON DIOXIDE - CO2 25 mmol/L (21-32); CHLORIDE 108 mmol/L (101-111); CHOL/HDL RATIO 3.9 (<4.4); CHOLESTEROL 158 mg/dL; CREATININE 0.7 mg/dL (0.4-1.0); GFR - MDRD 82 (>89); GLUCOSE 151 mg/dL (70-100); HDL CHOLESTEROL 41 mg/dL; LDL CHOLESTEROL,CALCULATED 80 mg/dL; POTASSIUM 3.9 mmol/L (3.5-5.0); SODIUM 142 mmol/L (135-145); TOTAL PROTEIN 6.4 g/dL (6.7-8.2); TRIGLYCERIDES 187 mg/dL; VLDL CHOLESTEROL 37 mg/dL
[2022-11-11 09:42] LABS: ESTIMATED AVERAGE GLUCOSE 117 mg/dL (70-100); HEMOGLOBIN A1c% 5.7 % (4.27-6.07)
== END 2022-11-11 07:14 | disposition home or self-care (01) ==
LOC: LAB 07:13
PROVIDERS: ATTEND Physician Assistant Medical
DX: E11.9 Type 2 diabetes mellitus without complications (principal)
CPT/HCPCS: 36415; 80053; 80061; 83036; 83721

== ENCOUNTER 2023-04-20 09:03 | Outpatient (CLI) | payer MEDICARE, BC ==
[2023-04-20 09:14] LABS: BASOPHILS % (AUTO) 0.1 %; EOSINOPHILS # (AUTO) 0.1 10^3/uL (0.0-0.7); EOSINOPHILS % (AUTO) 0.9 %; HCT - HEMATOCRIT 41.1 % (37.0-47.0); HGB - HEMOGLOBIN 13.9 g/dL (12.0-16.0); LYMPHOCYTES # (AUTO) 2.6 10^3/uL (1.5-3.5); LYMPHOCYTES % (AUTO) 34.8 %; MEAN CORPUSCULAR HEMOGLOBIN 32.4 pg (27.0-31.0); MEAN CORPUSCULAR HGB CONC 33.8 g/dL (32.0-36.0); MEAN CORPUSCULAR VOLUME 95.8 fL (81.0-99.0); MONOCYTES # (AUTO) 0.7 10^3/uL (0.0-1.0); MONOCYTES % (AUTO) 8.7 %; NEUTROPHILS # (AUTO) 4.2 10^3/uL (1.5-6.6); NEUTROPHILS % (AUTO) 55.1 %; PLT - PLATELET COUNT 221 10^3/uL (130-450); RED BLOOD COUNT 4.29 10^6/uL (4.20-5.40); RED CELL DISTRIBUTION WIDTH 13.2 % (12.0-15.0); WHITE BLOOD COUNT 7.6 x10^3/uL (4.8-10.8)
[2023-04-20 09:30] LABS: ALBUMIN 4.5 g/dL (3.2-5.5); ALBUMIN/GLOBULIN RATIO 1.9 (1.0-2.2); ALKALINE PHOSPHATASE 55 IU/L (42-121); ALT ALANINE AMINOTRANSFERASE 29 IU/L (10-60); AST ASPARTATE AMINOTRANSFERASE 24 IU/L (10-42); BILIRUBIN,TOTAL 0.6 mg/dL (0.2-1.0); BUN - BLOOD UREA NITROGEN 19 mg/dL (6-20); CALCIUM 10.1 mg/dL (8.5-10.3); CARBON DIOXIDE - CO2 28 mmol/L (21-32); CHLORIDE 105 mmol/L (101-111); CHOL/HDL RATIO 3.6 (<4.4); CHOLESTEROL 159 mg/dL; CREATININE 0.7 mg/dL (0.6-1.3); GFR - MDRD 82 (>89); GLUCOSE 148 mg/dL (74-104); HDL CHOLESTEROL 44 mg/dL; LDL CHOLESTEROL,CALCULATED 64 mg/dL; LDL/HDL RATIO 1.5 (<4.4); SODIUM 138 mmol/L (135-145); TOTAL PROTEIN 6.9 g/dL (6.4-8.9); TRIGLYCERIDES 253 mg/dL (48-352); URIC ACID 5.6 mg/dL (2.3-6.6); VLDL CHOLESTEROL 51 mg/dL
[2023-04-20 09:45] LABS: THYROID STIMULATING HORMONE 0.18 uIU/mL (0.34-5.60)
[2023-04-20 11:03] LABS: ESTIMATED AVERAGE GLUCOSE 114 mg/dL (70-100); HEMOGLOBIN A1c% 5.6 % (4.27-6.07)
== END 2023-04-20 09:04 | disposition home or self-care (01) ==
LOC: LAB 09:03
PROVIDERS: ATTEND Physician Assistant Medical
DX: I10 Essential (primary) hypertension (principal); E78.5 Hyperlipidemia, unspecified; E11.9 Type 2 diabetes mellitus without complications; E03.9 Hypothyroidism, unspecified; M10.9 Gout, unspecified
CPT/HCPCS: 36415; 80053; 80061; 83036; 83721; 84439; 84443; 84550; 85025

== ENCOUNTER 2023-04-27 08:49 | Outpatient (CLI) | payer MEDICARE, BC ==
--- NOTE | 2023-05-04 10:20 | Mammography Report ---
BILATERAL DIGITAL SCREENING MAMMOGRAM 3D/2D: 04/27/2023 CLINICAL: Routine screening. Comparison is made to exams dated: 11/26/2021 mammogram - [facility], 03/25/2021 mammogram, 11/21/2018 ultrasound, 11/21/2018 mammogram, 06/28/2018 mammogram, and 05/30/2016 mammogram - [facility]. There are scattered areas of fibroglandular density in both breasts (category b / 25%-50% glandular t issue). No significant masses, calcifications, or other findings are seen in either breast. There has been no significant interval change. IMPRESSION: NEGATIVE There is no mammographic evidence of malignancy. A 1 year screening mammogram is recommended. Based on the Tyrer Cuzick model (a risk assessment model) the patients lifetime risk is 4.0% and her 10 year risk is 2.7%. According to the ACR, ACS, and NCCN guidelines, an annual breast MRI exam guillermo g with mammogram is recommended if the patients lifetime risk is 20% or greater. This exam was interpreted at Station ID: [id number]. NOTE: For mammograms, a report in lay terms will be sent to the patient. Approximately 15% of breast malignancies will not be visualized mammographically. In the management of a palpable breast mass, a negative mammogram must not discourage biopsy of a clinically suspicious lesion. Electronically Signed By: Sarahy Marley M.D., PH.D /janet:05/04/2023 00:57:28 letter sent: No_Letter ACR BI-RADS Category 1: Negative 3341F PARENCHYMAL PATTERN: (A) - The breast(s) demonstrate(s) scattered fibroglandular densities. BI-RADS CATEGORY: (1) - 1 Mammogram [id number] 1 year screening LATERALITY: (B)
== END 2023-04-27 08:50 | disposition home or self-care (01) ==
LOC: DI 08:49
DX: Z12.31 Encounter for screening mammogram for malignant neoplasm of breast (principal); R92.323 Mammographic fibroglandular density, bilateral breasts

== ENCOUNTER 2023-11-30 07:20 | Outpatient (CLI) | payer MEDICARE, OTHER ==
[2023-11-30 08:09] LABS: ESTIMATED AVERAGE GLUCOSE 117 mg/dL (70-100); HEMOGLOBIN A1c% 5.7 % (4.27-6.07)
[2023-11-30 08:12] LABS: ALBUMIN 4.4 g/dL (3.2-5.5); ALBUMIN/GLOBULIN RATIO 1.6 (1.0-2.2); BILIRUBIN,TOTAL 0.5 mg/dL (0.2-1.0); CALCIUM 9.9 mg/dL (8.5-10.3); CREATININE 0.7 mg/dL (0.6-1.3); POTASSIUM 4.2 mmol/L (3.5-4.5); TOTAL PROTEIN 7.1 g/dL (6.4-8.9)
[2023-11-30 08:54] LABS: THYROID STIMULATING HORMONE 0.34 uIU/mL (0.34-5.60)
== END 2023-11-30 07:21 | disposition home or self-care (01) ==
LOC: LAB 07:20
PROVIDERS: ATTEND Physician Assistant Medical
DX: E11.9 Type 2 diabetes mellitus without complications (principal); E03.9 Hypothyroidism, unspecified
CPT/HCPCS: 36415; 80053; 83036; 84443

== ENCOUNTER 2024-01-24 12:14 | Outpatient (CLI) | payer MEDICARE, OTHER | END 2024-01-24 12:15 | disposition home or self-care (01) | LOC: LAB.WCP 12:14 | PROVIDERS: ATTEND Physician Assistant Medical | DX: N39.0 Urinary tract infection, site not specified (principal) | CPT/HCPCS: 87077; 87086; 87181 ==